=== PATIENT | male | born 1935 | race African-American/Black ===

== ENCOUNTER 2024-06-17 21:01 | Inpatient (IN) | payer MEDICARE, OTHER ==
[~2024-06-17] VITALS: Ht 177.8 cm; Wt 45.8 kg
[2024-06-17 22:29] LABS: BASOPHILS # (AUTO) 0.1 K/UL (0.0-0.2); BASOPHILS % (AUTO) 0.8 % (0.0-2.0); DIFFERENTIAL COMMENT 0; EOSINOPHILS # (AUTO) 0.1 K/uL (0.0-0.7); EOSINOPHILS % (AUTO) 0.7 % (0.0-7.0); HEMATOCRIT 30.4 % (36.7-47.1); HEMOGLOBIN 10.7 g/dL (12.5-16.3); LYMPHOCYTES # (AUTO) 1.4 K/uL (0.8-4.8); LYMPHOCYTES % (AUTO) 16.9 % (20.5-51.5); MEAN CORPUSCULAR HEMOGLOBIN 27.5 uug (23.8-33.4); MEAN CORPUSCULAR HGB CONC 35 g/dL (32.5-36.3); MEAN CORPUSCULAR VOLUME 78.3 fL (73.0-96.2); MONOCYTES # (AUTO) 1.2 K/uL (0.1-1.30); MONOCYTES % (AUTO) 14.6 % (0.0-11.0); NEUTROPHILS # (AUTO) 5.7 K/uL (1.8-8.9); PLATELET COUNT (AUTO) 375 K/uL (152-348); RED BLOOD CELL COUNT(AUTO) 3.89 MIL/uL (4.06-5.63); RED CELL DISTRIBUTION WIDTH 15.3 % (12.1-16.2); WHITE BLOOD COUNT (AUTO) 8.5 K/uL (3.6-10.2)
[2024-06-17] MEDS ORDERED: LACT1CAP57 PO (22:29)
[2024-06-17] MEDS ORDERED: TAMS-3 PO (22:29)
[2024-06-17] MEDS ORDERED: MIRT7.5T10 PO (22:29)
[2024-06-17] MEDS ORDERED: AMLO-212 PO (22:29)
[2024-06-17] MEDS ORDERED: CIPR-262 PO (22:29)
[2024-06-17 22:43] LABS: CALCIUM 10.9 mg/dL (8.5-10.1); CARBON DIOXIDE 29 mmol/L (21-32); CHLORIDE 102 mmol/L (98-107); CREATININE 1.1 mg/dL (0.6-1.3); GLUCOSE 101 mg/dL (74-106); POTASSIUM 5.4 mmol/L (3.5-5.1); SODIUM SERUM 134 mmol/L (136-145); UREA NITROGEN, BLOOD 37 mg/dL (7-18)
[2024-06-17 22:52] LABS: ETHANOL < 3 MG/DL (0-10)
[2024-06-17 22:56] LABS: THYROID STIMULATING HORMONE 1.774 mIU/mL (0.358-3.740)
[2024-06-17 22:58] LABS: ALANINE AMINOTRANSFERASE 22 U/L (16-63); ALKALINE PHOSPHATASE 64 U/L (50-136); ASPARTATE AMINOTRANSFERASE 21 U/L (15-37); BILIRUBIN,DIRECT 0.1 mg/dL (0.0-0.2); BILIRUBIN,TOTAL 0.3 mg/dL (0.2-1.0); TOTAL PROTEIN, SERUM 6.3 g/dL (6.4-8.2)
[2024-06-17 23:03] LABS: ACETAMINOPHEN < 10.0 ug/mL (10-30)
[2024-06-18 00:42] LABS: *BILIRUBIN,URIN NEGATIVE (NEGATIVE); *BLOOD, URINE 3+ (NEGATIVE); *CLARITY,URINE SLIGHTLY CLOUDY (CLEAR); *COLOR,URINE YELLOW (YELLOW); *KETONES,URINE NEGATIVE (NEGATIVE); *PROTEIN,URINE NEGATIVE (NEGATIVE); *UROBILINOGEN,URINE 0.2 E.U./dl (NORMAL); LEUKOCYTE ESTERASE ,URINE NEGATIVE (NEGATIVE); NITRITE, URINE NEGATIVE (NEGATIVE); UGLUCOSE NEGATIVE (NEGATIVE)
[2024-06-18 00:48] LABS: BACTERIA,URINE NONE SEEN /HPF (NONE SEEN); WBC,URINE NONE SEEN /HPF (0-3)
[2024-06-18 00:49] LABS: RBC,URINE 50-80 /HPF (0-3); SQUAMOUS EPITHELIAL CELL,UR FEW /HPF (NONE SEEN)
[2024-06-18 01:09] LABS: *AMPHETAMINE, URINE NEGATIVE (NEGATIVE); *BARBITURATE, URINE NEGATIVE (NEGATIVE); *BENZODIAZEPINE, URINE NEGATIVE (NEGATIVE); *CANNABINOID, URINE POSITIVE (NEGATIVE); *COCCAINE, URINE NEGATIVE (NEGATIVE); *OPIATE, URINE NEGATIVE (NEGATIVE); *PHENCYCLIDINE SCREEN,URINE NEGATIVE (NEGATIVE); FENTANYL, URINE NEGATIVE (NEGATIVE)
[2024-06-18] MEDS ORDERED: MAG HYDROX/AL HYDROX/SIMETH 30 ML LIQUID UDC PO PRN (03:30)
[2024-06-18] MEDS ORDERED: LORAZEPAM 1 MG TABLET PO PRN (03:30)
[2024-06-18 08:10] VITALS: BP 145/77; TEMP 98; O2SAT 100
[2024-06-18] MEDS: ENSURE ENLIVE (VAN) 240 ML LIQUID PO SCH (17:23)
[2024-06-18 20:00] VITALS: BP 100/63; TEMP 98.1; O2SAT 98
[2024-06-18] MEDS: MIRTAZAPINE 15 MG TABLET PO SCH (21:07)
[2024-06-19 08:00] VITALS: BP 119/65; TEMP 97; O2SAT 97
[2024-06-19] MEDS: AMLODIPINE 5 MG TABLET PO SCH (09:18)
[2024-06-19] MEDS ORDERED: TAMSULOSIN HCL 0.4 MG CAP.SR.24H PO SCH (10:00)
[2024-06-19] MEDS: TAMSULOSIN HCL 0.4 MG CAP.SR.24H PO SCH (12:09)
[2024-06-19 16:00] VITALS: BP 90/56; TEMP 97.8; O2SAT 97
[2024-06-19 21:22] VITALS: BP 106/56; TEMP 97.3; O2SAT 98
[2024-06-20 08:24] VITALS: BP 140/81; TEMP 97.7; O2SAT 98
[2024-06-20 16:22] VITALS: BP 121/54; TEMP 98.1; O2SAT 100
[2024-06-20] MEDS: MAGNESIUM HYDROXIDE 30 ML LIQUID UDC PO PRN (17:17)
[2024-06-20 19:55] VITALS: BP 131/66; TEMP 98.6; O2SAT 100
[2024-06-21 08:24] VITALS: BP 121/69; TEMP 98; O2SAT 100
[2024-06-21 16:53] VITALS: BP 114/56; TEMP 97.3; O2SAT 95
[2024-06-21 20:00] VITALS: BP 111/54; TEMP 97.8; O2SAT 94
[2024-06-22 08:20] VITALS: BP 126/70; TEMP 98.2; O2SAT 100
[2024-06-22 16:22] VITALS: TEMP 98.3; O2SAT 100
[2024-06-22 20:52] VITALS: BP 141/72; TEMP 98.4; O2SAT 100
[2024-06-22] MEDS: ZOLPIDEM 5 MG TABLET PO PRN (21:24)
[2024-06-23] MEDS: LORAZEPAM 1 MG TABLET PO PRN (06:37)
[2024-06-23] MEDS: ACETAMINOPHEN 325 MG TABLET PO PRN (06:37)
[2024-06-23 08:18] VITALS: BP 117/70; TEMP 98; O2SAT 98
[2024-06-23 16:18] VITALS: BP 116/68; TEMP 97.9; O2SAT 97
[2024-06-24 08:20] VITALS: BP 129/70; TEMP 98.3; O2SAT 91
[2024-06-24 16:22] VITALS: BP 147/66; TEMP 98.1; O2SAT 99
[2024-06-24 20:58] VITALS: BP 134/64; TEMP 98; O2SAT 95
[2024-06-25 08:15] VITALS: BP 126/62; TEMP 98; O2SAT 96
[2024-06-25 13:01] LABS: BASOPHILS # (AUTO) 0.1 K/UL (0.0-0.2); BASOPHILS % (AUTO) 0.3 % (0.0-2.0); HEMATOCRIT 29.9 % (36.7-47.1); HEMOGLOBIN 10.3 g/dL (12.5-16.3); LYMPHOCYTES # (AUTO) 0.8 K/uL (0.8-4.8); LYMPHOCYTES % (AUTO) 3.9 % (20.5-51.5); MEAN CORPUSCULAR HEMOGLOBIN 27.1 uug (23.8-33.4); MEAN CORPUSCULAR HGB CONC 35 g/dL (32.5-36.3); MEAN CORPUSCULAR VOLUME 78.4 fL (73.0-96.2); MONOCYTES # (AUTO) 3.9 K/uL (0.1-1.30); NEUTROPHILS # (AUTO) 15.6 K/uL (1.8-8.9); NEUTROPHILS % (AUTO) 76.8 % (38.5-71.5); PLATELET COUNT (AUTO) 424 K/uL (152-348); RED BLOOD CELL COUNT(AUTO) 3.81 MIL/uL (4.06-5.63); RED CELL DISTRIBUTION WIDTH 14.6 % (12.1-16.2); WHITE BLOOD COUNT (AUTO) 20.3 K/uL (3.6-10.2)
[2024-06-25 13:13] LABS: IRON, SERUM 11 ug/dL (50-175)
[2024-06-25 13:17] LABS: DIFFERENTIAL COMMENT 1
[2024-06-25 13:38] LABS: CALCIUM 11.1 mg/dL (8.5-10.1); CARBON DIOXIDE 28 mmol/L (21-32); CHLORIDE 102 mmol/L (98-107); CREATININE 1.3 mg/dL (0.6-1.3); FERRITIN 402 ng/mL (26-388); GLUCOSE 101 mg/dL (74-106); MAGNESIUM 2.3 mg/dL (1.8-2.4); POTASSIUM 4.4 mmol/L (3.5-5.1); SODIUM SERUM 139 mmol/L (136-145); UREA NITROGEN, BLOOD 50 mg/dL (7-18)
[2024-06-25 14:02] LABS: BAND % (MANUAL) 13 % (0-10); LYMPHOCYTES % (MANUAL) 6 % (20-40); NEUTROPHILS % (MANUAL) 60 % (42-75)
[2024-06-25 14:03] LABS: MONOCYTES % (MANUAL) 21 % (2-10); PLATELET ESTIMATE ADEQUATE
[2024-06-25 16:24] VITALS: BP 93/60; TEMP 99.8; O2SAT 90
[2024-06-25 17:24] LABS: LACTIC ACID 2.3 mmol/L (0.4-2.0)
[2024-06-25] MEDS ORDERED: CEFEPIME HCL 2 GM in IV DEXTROSE 5% 100 ML IV SCH (19:30)
[2024-06-25] MEDS ORDERED: IV LACTATED RINGERS SOLUTION 1,000 ML IV PRN (19:30)
[2024-06-25] MEDS ORDERED: CEFEPIME HCL 2 GM in IV DEXTROSE 5% 100 ML IV ONE (19:45)
[2024-06-25 21:00] LABS: BILIRUBIN,DIRECT 0.2 mg/dL (0.0-0.2); BILIRUBIN,TOTAL 0.8 mg/dL (0.2-1.0)
[2024-06-25] MEDS ORDERED: MIRTAZAPINE 15 MG TABLET PO SCH (21:00)
[2024-06-26] MEDS ORDERED: ZOLP5TAB2 PO (10:14)
[2024-06-26] MEDS ORDERED: LORA-259 PO (10:14)
[2024-06-26] MEDS ORDERED: LACT-237 PO (10:14)
[2024-06-26] MEDS ORDERED: MIRT-73 PO (10:16)
== END 2024-06-25 19:59 | disposition short-term general hospital (02) | DRG 885 ==
LOC: ER 21:01 → GPS 23:00
PROVIDERS: ADMIT Psychiatry & Neurology Psychiatry; ATTEND Internal Medicine
DX: F33.3 Major depressive disorder, recurrent, severe with psychotic symptoms (principal); E44.1 Mild protein-calorie malnutrition; E87.1 Hypo-osmolality and hyponatremia; F03.94 Unspecified dementia, unspecified severity, with anxiety; M62.81 Muscle weakness (generalized); Z79.899 Other long term (current) drug therapy; Z87.440 Personal history of urinary (tract) infections; E88.09 Other disorders of plasma-protein metabolism, not elsewhere classified; E87.5 Hyperkalemia; I10 Essential (primary) hypertension; Z91.81 History of falling; R79.89 Other specified abnormal findings of blood chemistry
CPT/HCPCS: 36415; 71045; 82746; 83550; 83605; 83735; 84443; 85025; 87040; 87086; G0480; J0692; J7040; J7120

== ENCOUNTER 2024-06-25 19:39 | Inpatient (IN) | payer MEDICARE, OTHER ==
[~2024-06-25] VITALS: Ht 177.8 cm; Wt 45.8 kg
[~2024-06-25 19:39] MED LIST: AMLO-212 PO; CIPR-262 PO; LACT1CAP57 PO; MIRT7.5T10 PO; TAMS-3 PO
[2024-06-25 21:08] VITALS: BP 130/69; TEMP 98.9; O2SAT 92
[2024-06-25] MEDS ORDERED: ONDANSETRON 4 MG/2 ML VIAL IV PRN (21:30)
[2024-06-25] MEDS ORDERED: ENOXAPARIN SODIUM 40 MG/0.4 ML DISP.SYRIN SQ SCH (21:30)
[2024-06-25] MEDS ORDERED: CEFEPIME HCL 1 G VIAL ONE ×2 (22:25→22:48)
[2024-06-25] MEDS: IV NS 1000 ML 1,000 ML IV PRN (22:32)
[2024-06-25] MEDS: CEFEPIME HCL 2 GM in IV DEXTROSE 5% 100 ML IV ONE (22:56)
[2024-06-25] MEDS: LORAZEPAM 0.5 MG TABLET PO PRN (23:03)
[2024-06-25] MEDS: ACETAMINOPHEN 325 MG TABLET PO PRN (23:03)
[2024-06-26] VITALS (7 sets, daily range): BP systolic 97–136; BP diastolic 59–79; TEMP 97.5–99.7; O2SAT 93–97
[2024-06-26] MEDS ORDERED: VANCOMYCIN HCL 500 MG VIAL ONE (00:03)
[2024-06-26] MEDS: VANCOMYCIN HCL 750 MG in IV DEXTROSE 5% 250 ML IV ONE (00:34)
[2024-06-26] MEDS: PANTOPRAZOLE SODIUM 40 MG TABLET.DR PO SCH (06:52)
[2024-06-26 07:04] LABS: BASOPHILS # (AUTO) 0.1 K/UL (0.0-0.2); BASOPHILS % (AUTO) 0.6 % (0.0-2.0); EOSINOPHILS % (AUTO) 0.1 % (0.0-7.0); HEMATOCRIT 28.4 % (36.7-47.1); LYMPHOCYTES # (AUTO) 1.2 K/uL (0.8-4.8); LYMPHOCYTES % (AUTO) 7.5 % (20.5-51.5); MEAN CORPUSCULAR HEMOGLOBIN 27.6 uug (23.8-33.4); MEAN CORPUSCULAR HGB CONC 35 g/dL (32.5-36.3); MEAN CORPUSCULAR VOLUME 78.4 fL (73.0-96.2); MONOCYTES # (AUTO) 3.2 K/uL (0.1-1.30); MONOCYTES % (AUTO) 19.5 % (0.0-11.0); NEUTROPHILS # (AUTO) 11.9 K/uL (1.8-8.9); NEUTROPHILS % (AUTO) 72.3 % (38.5-71.5); PLATELET COUNT (AUTO) 454 K/uL (152-348); RED BLOOD CELL COUNT(AUTO) 3.62 MIL/uL (4.06-5.63); RED CELL DISTRIBUTION WIDTH 14.8 % (12.1-16.2); WHITE BLOOD COUNT (AUTO) 16.4 K/uL (3.6-10.2)
[2024-06-26 07:23] LABS: DIFFERENTIAL COMMENT 1
[2024-06-26 07:57] LABS: CALCIUM 11.4 mg/dL (8.5-10.1); CARBON DIOXIDE 25 mmol/L (21-32); CHLORIDE 105 mmol/L (98-107); CREATININE 1.1 mg/dL (0.6-1.3); GLUCOSE 107 mg/dL (74-106); MAGNESIUM 2.5 mg/dL (1.8-2.4); PHOSPHOROUS 3.3 mg/dL (2.5-4.9); POTASSIUM 4.4 mmol/L (3.5-5.1); SODIUM SERUM 139 mmol/L (136-145); UREA NITROGEN, BLOOD 53 mg/dL (7-18)
[2024-06-26] MEDS ORDERED: TAMSULOSIN HCL 0.4 MG CAP.SR.24H PO SCH (09:00)
[2024-06-26] MEDS: ENOXAPARIN SODIUM 40 MG/0.4 ML DISP.SYRIN SQ SCH (09:57)
[2024-06-26] MEDS ORDERED: ZOLP5TAB2 PO (10:14)
[2024-06-26] MEDS ORDERED: LACT-237 PO (10:14)
[2024-06-26] MEDS ORDERED: LORA-259 PO (10:14)
[2024-06-26] MEDS ORDERED: MIRT-73 PO (10:16)
[2024-06-26 10:21] LABS: LYMPHOCYTES % (MANUAL) 6 % (20-40); MONOCYTES % (MANUAL) 13 % (2-10); NEUTROPHILS % (MANUAL) 81 % (42-75); PLATELET ESTIMATE INCREASED
[2024-06-26 12:23] LABS: THYROID STIMULATING HORMONE 1.466 mIU/mL (0.358-3.740)
[2024-06-26] MEDS: ENSURE ENLIVE (VAN) 240 ML LIQUID PO SCH (17:13)
[2024-06-26] MEDS: TAMSULOSIN HCL 0.4 MG CAP.SR.24H PO SCH (20:37)
[2024-06-26] MEDS: MIRTAZAPINE 15 MG TAB.RAPDIS PO SCH (20:38)
[2024-06-26] MEDS ORDERED: ENOXAPARIN SODIUM 40 MG/0.4 ML DISP.SYRIN SQ SCH (21:00)
[2024-06-26] MEDS ORDERED: MIRTAZAPINE 15 MG TABLET PO SCH (21:00)
[2024-06-26] MEDS ORDERED: CEFEPIME HCL 1 G in IV DEXTROSE 5% 50 ML IV SCH (21:30)
[2024-06-26] MEDS: CEFEPIME HCL 2 GM in IV DEXTROSE 5% 100 ML IV SCH (22:51)
[2024-06-26 23:08] LABS: HIV-1 p24 ANTIGEN NON REACTIVE (NONREACTIVE); HIV-1/2 ANTIBODY NON REACTIVE (NONREACTIVE)
[2024-06-26] MEDS: VANCOMYCIN HCL 750 MG in IV DEXTROSE 5% 250 ML IV SCH (23:56)
[2024-06-27 06:32] VITALS: BP 143/79; TEMP 97.8; O2SAT 98
[2024-06-27 07:13] LABS: BASOPHILS # (AUTO) 0.1 K/UL (0.0-0.2); BASOPHILS % (AUTO) 0.6 % (0.0-2.0); EOSINOPHILS # (AUTO) 0.1 K/uL (0.0-0.7); HEMATOCRIT 26.1 % (36.7-47.1); HEMOGLOBIN 9.1 g/dL (12.5-16.3); LYMPHOCYTES # (AUTO) 1.5 K/uL (0.8-4.8); LYMPHOCYTES % (AUTO) 11.8 % (20.5-51.5); MEAN CORPUSCULAR HEMOGLOBIN 27.6 uug (23.8-33.4); MEAN CORPUSCULAR HGB CONC 35 g/dL (32.5-36.3); MEAN CORPUSCULAR VOLUME 78.9 fL (73.0-96.2); MONOCYTES # (AUTO) 2.1 K/uL (0.1-1.30); MONOCYTES % (AUTO) 16.8 % (0.0-11.0); NEUTROPHILS # (AUTO) 8.8 K/uL (1.8-8.9); NEUTROPHILS % (AUTO) 69.8 % (38.5-71.5); PLATELET COUNT (AUTO) 460 K/uL (152-348); RED BLOOD CELL COUNT(AUTO) 3.31 MIL/uL (4.06-5.63); RED CELL DISTRIBUTION WIDTH 14.6 % (12.1-16.2); WHITE BLOOD COUNT (AUTO) 12.6 K/uL (3.6-10.2)
[2024-06-27 07:21] LABS: DIFFERENTIAL COMMENT 1
[2024-06-27 08:05] LABS: ALANINE AMINOTRANSFERASE 20 U/L (16-63); ALBUMIN 2.3 g/dL (3.4-5.0); ALKALINE PHOSPHATASE 67 U/L (50-136); ASPARTATE AMINOTRANSFERASE 14 U/L (15-37); BILIRUBIN,DIRECT 0.1 mg/dL (0.0-0.2); BILIRUBIN,TOTAL 0.4 mg/dL (0.2-1.0); CARBON DIOXIDE 26 mmol/L (21-32); CHLORIDE 106 mmol/L (98-107); GLUCOSE 99 mg/dL (74-106); MAGNESIUM 2.2 mg/dL (1.8-2.4); PHOSPHOROUS 2.7 mg/dL (2.5-4.9); POTASSIUM 4.7 mmol/L (3.5-5.1); SODIUM SERUM 138 mmol/L (136-145); TOTAL PROTEIN, SERUM 6.9 g/dL (6.4-8.2); UREA NITROGEN, BLOOD 42 mg/dL (7-18)
[2024-06-27 08:25] LABS: CALCIUM 10.9 mg/dL (8.5-10.1)
[2024-06-27] MEDS: CULTURELLE CAPSULE PO SCH (09:07)
[2024-06-27] MEDS: COMPLEAT MODIFIED FORMULA 1000 ML LIQUID PO SCH (09:10)
[2024-06-27 09:12] LABS: CREATINE KINASE, TOTAL 39 U/L (39-308)
[2024-06-27 11:26] LABS: EOSINOPHILS % (MANUAL) 1 % (0-8); LYMPHOCYTES % (MANUAL) 12 % (20-40); MONOCYTES % (MANUAL) 17 % (2-10); NEUTROPHILS % (MANUAL) 70 % (42-75); PLATELET ESTIMATE INCREASED
[2024-06-27 11:49] VITALS: BP 116/58; TEMP 97.5; O2SAT 97
[2024-06-27 16:06] VITALS: BP 109/72; TEMP 97.6; O2SAT 97
[2024-06-27 19:00] VITALS: BP 120/68; TEMP 98.9; O2SAT 98
[2024-06-28] VITALS: BP 130/73; TEMP 98.4; O2SAT 99
[2024-06-28 04:00] VITALS: BP 142/75; TEMP 98.9; O2SAT 97
[2024-06-28 07:07] LABS: HEPATITIS B CORE AB, TOTAL Positive (Negative); HEPATITIS B SURFACE AB, QUAL Reactive (.); HEPATITIS B SURFACE AG Negative (Negative); HEPATITIS C VIRUS ANTIBODY Non Reactive (Non Reactive)
[2024-06-28 07:38] LABS: BASOPHILS # (AUTO) 0.1 K/UL (0.0-0.2); BASOPHILS % (AUTO) 0.5 % (0.0-2.0); EOSINOPHILS # (AUTO) 0.2 K/uL (0.0-0.7); EOSINOPHILS % (AUTO) 1.3 % (0.0-7.0); HEMATOCRIT 26.3 % (36.7-47.1); HEMOGLOBIN 9.2 g/dL (12.5-16.3); LYMPHOCYTES # (AUTO) 1.3 K/uL (0.8-4.8); LYMPHOCYTES % (AUTO) 11.1 % (20.5-51.5); MEAN CORPUSCULAR HEMOGLOBIN 27.5 uug (23.8-33.4); MEAN CORPUSCULAR HGB CONC 35 g/dL (32.5-36.3); MONOCYTES # (AUTO) 1.6 K/uL (0.1-1.30); MONOCYTES % (AUTO) 14.1 % (0.0-11.0); NEUTROPHILS # (AUTO) 8.5 K/uL (1.8-8.9); PLATELET COUNT (AUTO) 512 K/uL (152-348); RED BLOOD CELL COUNT(AUTO) 3.33 MIL/uL (4.06-5.63); RED CELL DISTRIBUTION WIDTH 14.5 % (12.1-16.2); WHITE BLOOD COUNT (AUTO) 11.7 K/uL (3.6-10.2)
[2024-06-28 07:50] LABS: DIFFERENTIAL COMMENT 1
[2024-06-28 07:54] LABS: CALCIUM 10.9 mg/dL (8.5-10.1); CARBON DIOXIDE 23 mmol/L (21-32); CHLORIDE 107 mmol/L (98-107); CREATININE 0.9 mg/dL (0.6-1.3); GLUCOSE 100 mg/dL (74-106); MAGNESIUM 1.9 mg/dL (1.8-2.4); PHOSPHOROUS 2.2 mg/dL (2.5-4.9); POTASSIUM 4.1 mmol/L (3.5-5.1); SODIUM SERUM 140 mmol/L (136-145); UREA NITROGEN, BLOOD 32 mg/dL (7-18)
[2024-06-28 09:07] LABS: PTH, INTACT 57 pg/mL (15-65)
[2024-06-28 09:16] VITALS: BP 139/73; TEMP 98.1; O2SAT 98
[2024-06-28 10:07] LABS: CALCITRIOL VIT D,1,25 DIHYDROX 31.7 pg/mL (24.8-81.5)
[2024-06-28 11:53] VITALS: BP 132/81; TEMP 97.5; O2SAT 99
[2024-06-28] MEDS: NEUTRA PHOS PACKET PO ONE (16:16)
[2024-06-28] MEDS: REMEDY ESSENTIAL ZINC PASTE 113 GM TP PRN (16:27)
[2024-06-28 19:00] VITALS: BP 148/83; TEMP 98.4; O2SAT 96
[2024-06-28 19:01] VITALS: BP 138/77; TEMP 98.2; O2SAT 98
[2024-06-29] VITALS: BP 148/84; TEMP 98.2; O2SAT 98
[2024-06-29 04:00] VITALS: BP 129/86; TEMP 97.9; O2SAT 95
[2024-06-29 05:17] LABS: *BILIRUBIN,URIN NEGATIVE (NEGATIVE); *BLOOD, URINE NEGATIVE (NEGATIVE); *CLARITY,URINE CLEAR (CLEAR); *COLOR,URINE YELLOW (YELLOW); *KETONES,URINE NEGATIVE (NEGATIVE); *PROTEIN,URINE TRACE (NEGATIVE); *UROBILINOGEN,URINE 0.2 E.U./dl (NORMAL); LEUKOCYTE ESTERASE ,URINE NEGATIVE (NEGATIVE); NITRITE, URINE NEGATIVE (NEGATIVE); UGLUCOSE NEGATIVE (NEGATIVE)
[2024-06-29 05:29] LABS: *CREATININE,URINE 73.1 mg/dL (30-125); *URINE TOTAL PROTEIN RANDOM 53.3 mg/dL (<150/24HR)
[2024-06-29 11:11] VITALS: BP 147/70; TEMP 98.4; O2SAT 95
[2024-06-29] MEDS ORDERED: LEVO750T46 PO (12:46)
[2024-06-29] MEDS ORDERED: LORA0.5T48 PO (12:46)
[2024-06-29 15:10] VITALS: BP 148/78; TEMP 98.2; O2SAT 95
[2024-06-30 14:07] LABS: A/G RATIO 0.7 (0.7-1.7); ALBUMIN 2.4 g/dL (2.9-4.4); ALPHA-1-GLOBULIN 0.5 g/dL (0.0-0.4); ALPHA-2-GLOBULIN 1.1 g/dL (0.4-1.0); GLOBULIN, TOTAL 3.6 g/dL (2.2-3.9); M-SPIKE Not Observed g/dL (Not Observed)
== END 2024-06-29 17:49 | DRG 871 ==
LOC: TELE3 19:39
PROVIDERS: ADMIT Nurse Practitioner Family; ATTEND Nurse Practitioner Family
DX: A41.9 Sepsis, unspecified organism (principal); G93.41 Metabolic encephalopathy; J15.9 Unspecified bacterial pneumonia; F33.3 Major depressive disorder, recurrent, severe with psychotic symptoms; R65.20 Severe sepsis without septic shock; Z87.440 Personal history of urinary (tract) infections; D64.9 Anemia, unspecified; E83.52 Hypercalcemia; E86.9 Volume depletion, unspecified; R41.89 Other symptoms and signs involving cognitive functions and awareness; I10 Essential (primary) hypertension; R79.89 Other specified abnormal findings of blood chemistry; D75.839 Thrombocytosis, unspecified; F41.9 Anxiety disorder, unspecified; N40.0 Benign prostatic hyperplasia without lower urinary tract symptoms
CPT/HCPCS: 36415; 82652; 83735; 83970; 84100; 84155; 84165; 84300; 84443; 85025; 86704; 86706; 86803; 87340; 87806; 93005; A4663; A6213; G0378; J0692; J1650; J3370; J7040; J7050; J7120